=== PATIENT | male | born 1995 | race Caucasian/White ===

== ENCOUNTER 2017-12-09 17:16 | Emergency (ER) | payer OTHER ==
[~2017-12-09 17:16] MED LIST: Bactrim Ds Tab1 EACH PO; Keflex500 MG PO; Norco 5-325 Ta1 EACH PO
== END 2017-12-09 17:52 | disposition left against medical advice (07) ==
LOC: ER 17:16
DX: Z53.21 Procedure and treatment not carried out due to patient leaving prior to being seen by health care provider (principal)

== ENCOUNTER 2017-12-11 19:33 | Emergency (ER) | payer OTHER ==
[~2017-12-11] VITALS: Ht 177.8 cm; Wt 86.2 kg
[2017-12-11 20:30] LABS: BASOPHILS ABSOLUTE AUTO 0.05 K/mm3 (0.00-0.23); BASOPHILS PERCENT AUTO 1 % (0-2); EOSINOPHILS ABSOLUTE AUTO 0.13 K/mm3 (0.00-0.68); EOSINOPHILS PERCENT AUTO 2 % (0-6); Hematocrit 47.1 % (37.0-53.0); Hemoglobin 15.7 g/dL (13.5-17.5); IMMATURE GRAN ABSOLUTE AUTO 0.02 K/mm3 (0.00-0.10); IMMATURE GRAN PERCENT AUTO 0 % (0-1); LYMPHOCYTES PERCENT AUTO 29 % (21-46); MONOCYTES ABSOLUTE AUTO 0.62 K/mm3 (0.16-1.47); MONOCYTES PERCENT AUTO 9 % (4-13); Mean Corpuscular HGB 31.3 pg (26.0-34.0); Mean Corpuscular HGB Conc 33.3 g/dL (31.5-36.5); Mean Corpuscular Volume 94 fL (80-100); Mean Platelet Volume 9.9 fL (9.1-12.4); NEUTROPHILS ABSOLUTE AUTO 4.03 K/mm3 (1.96-9.15); NEUTROPHILS PERCENT AUTO 59 % (41-73); Platelet Count 238 K/mm3 (150-400); RDW Standard Deviation 41.8 fL (35.1-46.3); Red Blood Cell Count 5.01 M/mm3 (4.30-5.90); White Blood Cell Count 6.85 K/mm3 (4.00-11.30)
[2017-12-11 20:43] LABS: Alanine Aminotransfer (ALT/SGP 49 U/L (12-78); Albumin, Blood 4.1 g/dL (3.4-5.0); Albumin/Globulin Ratio 1.3 (0.8-1.8); Alk Phos 77 U/L (50-136); Anion Gap 7 mmol/L (6-16); Aspartate Aminotrans (AST/SGOT 22 U/L (12-37); Bilirubin, Total 0.3 mg/dL (0.1-1.0); Blood Urea Nitrogen 13 mg/dL (8-24); Bun/Creatinine Ratio 11.8 (12.0-20.0); CO2, Blood 28 mmol/L (21-32); Calcium, Blood 9.1 mg/dL (8.5-10.1); Chloride, Blood 106 mmol/L (98-108); Globulin, Blood 3.2 g/dL (2.2-4.0); Glomerular Filtration Rate >60 (60-); Glucose, Blood 100 mg/dL (70-99); Potassium, Blood 3.8 mmol/L (3.5-5.5); Sodium, Blood 141 mmol/L (136-145); Total Protein, Blood 7.3 g/dL (6.4-8.2); Troponin I <0.015 ng/mL (0.000-0.040)
== END 2017-12-11 23:35 | disposition home or self-care (01) ==
LOC: ER 19:33
PROVIDERS: Emergency Medicine
DX: R07.89 Other chest pain (principal); F15.10 Other stimulant abuse, uncomplicated; Z87.891 Personal history of nicotine dependence
CPT/HCPCS: 36415; 71046; 80053; 84484; 85025; 93005; 93010; 96374; 96375; 99284-25; J1100; J1885

== ENCOUNTER 2018-04-11 18:29 | Observation (INO) | payer OTHER ==
[~2018-04-11] VITALS: Ht 177.8 cm; Wt 88.5 kg
[~2018-04-11 18:29] MED LIST changes: +HYDHCL25 PO
[2018-04-11 20:10] LABS: BASOPHILS ABSOLUTE AUTO 0.04 K/mm3 (0.00-0.23); BASOPHILS PERCENT AUTO 0 % (0-2); EOSINOPHILS ABSOLUTE AUTO 0.01 K/mm3 (0.00-0.68); EOSINOPHILS PERCENT AUTO 0 % (0-6); Hematocrit 46.1 % (37.0-53.0); Hemoglobin 15.9 g/dL (13.5-17.5); IMMATURE GRAN ABSOLUTE AUTO 0.04 K/mm3 (0.00-0.10); IMMATURE GRAN PERCENT AUTO 0 % (0-1); LYMPHOCYTES ABSOLUTE AUTO 1.67 K/mm3 (0.84-5.20); LYMPHOCYTES PERCENT AUTO 12 % (21-46); MONOCYTES ABSOLUTE AUTO 1.39 K/mm3 (0.16-1.47); MONOCYTES PERCENT AUTO 10 % (4-13); Mean Corpuscular HGB 31.8 pg (26.0-34.0); Mean Corpuscular HGB Conc 34.5 g/dL (31.5-36.5); Mean Corpuscular Volume 92 fL (80-100); Mean Platelet Volume 10.5 fL (9.1-12.4); NEUTROPHILS ABSOLUTE AUTO 11.04 K/mm3 (1.96-9.15); NEUTROPHILS PERCENT AUTO 78 % (41-73); Platelet Count 215 K/mm3 (150-400); RDW Coefficient Variation 11.9 % (11.7-14.2); RDW Standard Deviation 40.7 fL (35.1-46.3); White Blood Cell Count 14.19 K/mm3 (4.00-11.30)
[2018-04-11 20:34] LABS: Alanine Aminotransfer (ALT/SGP 37 U/L (12-78); Albumin, Blood 4.6 g/dL (3.4-5.0); Albumin/Globulin Ratio 1.5 (0.8-1.8); Alk Phos 71 U/L (50-136); Anion Gap 11 mmol/L (6-16); Aspartate Aminotrans (AST/SGOT 67 U/L (12-37); Bilirubin, Total 0.6 mg/dL (0.1-1.0); Blood Urea Nitrogen 19 mg/dL (8-24); Bun/Creatinine Ratio 14.7 (12.0-20.0); CO2, Blood 22 mmol/L (21-32); Calcium, Blood 9.2 mg/dL (8.5-10.1); Chloride, Blood 106 mmol/L (98-108); Creatinine, Blood 1.29 mg/dL (0.60-1.20); Ethanol (Alcohol), Blood, Med <3 mg/dL; Globulin, Blood 3.1 g/dL (2.2-4.0); Glomerular Filtration Rate >60 (60-); Glucose, Blood 90 mg/dL (70-99); Potassium, Blood 3.5 mmol/L (3.5-5.5); Salicylate 3.8 mg/dL (2.8-20.0); Sodium, Blood 139 mmol/L (136-145); Thyroxine (T4) 12.6 ug/dL (4.5-12.1); Total Protein, Blood 7.7 g/dL (6.4-8.2)
[2018-04-11 20:39] LABS: Thyroid Stimulating Hormone 0.745 uIU/mL (0.360-4.800)
[2018-04-11 20:50] LABS: Acetaminophen, Random <2.0 ug/mL (10.0-30.0)
[2018-04-12 08:01] LABS: U Amphetamine Screen Not Detected; U Barbituate Screen Not Detected; U Benzodiazapine Screen DETECTED; U Buprenorphine Screen Not Detected; U Cannabinoids Screen DETECTED; U Cocaine Screen Not Detected; U Methadone Screen Not Detected; U Methamphetamine Screen Not Detected; U Opiates Screen Not Detected; U Oxycodone Screen Not Detected; U Phencyclidine Screen Not Detected; U Propoxyphene Screen Not Detected
== END 2018-04-14 09:30 | disposition home or self-care (01) ==
LOC: ER 18:29 → EOR 18:30
PROVIDERS: ADMIT Emergency Medicine
DX: F32.9 Major depressive disorder, single episode, unspecified (principal); Z87.891 Personal history of nicotine dependence; Z79.899 Other long term (current) drug therapy
CPT/HCPCS: 80053; 84436; 84443; 85025; 93005; 93010; 99285-25; G0378; G0480; Q3014

== ENCOUNTER 2019-09-15 16:38 | Observation (INO) | payer OTHER ==
[~2019-09-15] VITALS: Ht 177.8 cm; Wt 86.2 kg
--- NOTE | 2019-09-15 20:28 | NUR ---
09/15/192027 Petey Guardado PATIENT RECEIVED ANTIBIOTICS IN ER
--- NOTE | 2019-09-15 21:45 | NUR ---
TRANSFER TO SURGICAL UNIT PT ADMIT TO SURGICAL FLOOR FROM PACU AT APPROX 2150 TODAY. PT A/OX4 WITH VSS AND ABLE TO TRANSFER SELF TO BED. STATES PAIN IS TOLERABLE. ABD STERI-STRIPS APPEAR C/D/I. IVF INFUSING PER ORDERS. DENIES N/V, PDAMAJA. PO INTAKE. ORIENTATION TO ROOM GIVEN, PT VERBALIZED UNDERSTANDING. IS CURRENTLY WATCHING TV IN ROOM WITH CALL LIGHT IN REACH. WILL CONT TO MONITOR.
[2019-09-16] MEDS ORDERED: CENTRUM SILVER1 EAC2 PO (00:18)
--- NOTE | 2019-09-16 06:21 | NUR ---
SHIFT SUMMARY POD 1 LAP APPY, DRESSING/STERI STRIPS APPEAR INTACT WITH SCANT AMOUNT OF DRAINAGE. PAIN MANAGED WITH HEAT THERAPY, AMBULATION, AND PER EMAR. PT PADMAJA REGULAR DIET. IS IND IN ROOM/HALLWAYS. IVF AND ABX INFUSED PER ORDERS. IS CURRENTLY RESTING IN BED WITH CALL LIGHT IN REACH AND SCD'S IN PLACE. PLAN FOR POSSIBLE DC HOME TODAY. WILL CONT TO MONITOR AND GIVE REPORT TO ONCOMING RN.
[2019-09-16] MEDS ORDERED: AMOCLA875 PO (12:48)
[2019-09-16] MEDS ORDERED: OXYC5 PO (12:49)
--- NOTE | 2019-09-16 13:19 | NUR ---
DISCHARGED DC'D IV, CATHETER INTACT. REVIEWED DC INSTRUCTIONS, PT VERBALIZED UNDERSTANDING. AUGMENTIN CALLED IN TO [facility]. PT LEFT UNIT BY AMBULATION ACCOMPANIED BY FATHER W/POSSESSIONS AND DC PAPERWORK IN HAND.
== END 2019-09-16 13:20 | disposition home or self-care (01) ==
LOC: ER 16:38 → SURS 16:41 → ER 18:00 → SURS 21:08
PROVIDERS: ADMIT Surgery
PROC: 0DTJ4ZZ Resection of Appendix, Percutaneous Endoscopic Approach (ICD-10-PCS; principal; 2019-09-15 19:00)
DX: K35.30 Acute appendicitis with localized peritonitis, without perforation or gangrene (principal)
CPT/HCPCS: 76705; 76857; 80053; 82248; 83690; 85027; 86850; 86900; 86901; 88304; 96374; 96375; 96376; 99284-25; A9270; G0378; J1100; J1170; J1885; J2250; J2310; J2405; J2543; J2704; J3010; J7030; J7120; U0002